=== PATIENT | female | born 1995 | race Caucasian/White ===

== ENCOUNTER 2018-12-31 13:44 | Emergency (ER) | payer MEDICAID, OTHER ==
[~2018-12-31] VITALS: Ht 157.5 cm; Wt 50.0 kg
[2018-12-31 13:54] VITALS: Ht 157.5 cm; Wt 50.0 kg
[2018-12-31] MEDS ORDERED: SOD CHLORIDE 0.9% 1,000 ML IV STA (13:57)
[2018-12-31] MEDS ORDERED: KETOROLAC 30 MG INJ IV STA (13:57)
[2018-12-31] MEDS ORDERED: LORAZEPAM 2 MG INJ IV ONE (14:00)
--- NOTE | 2018-12-31 16:11 | ERD ---
ER Documentation Chief Complaint Chief Complaint abdominal pain also states cant walk feels numbness and tingling HPI This is a 23-year-old female with no past medical history the presents to the emergency department complaining of mild abdominal cramping. She states the abdominal cramping is a result of her dysmenorrhea she started her menstrual cycle today. She denies any menorrhagia or metrorrhagia. She states the abdominal cramping is normal during her menstrual cycle. She took a Motrin which she states she is never taken before. Roughly 5 minutes after taking the first 200 mg she took another 200 mg. After she took the second tablet of Motrin she stated that she started to feel some numbness and tingling in her [place] arms and legs. She started to feel anxious. She denied any palpitations or shortness of breath. She felt like it was difficult for her to ambulate. She denied a headache or changes in vision. ROS All systems reviewed and are negative except as per history of present illness. Medications Home Meds No Active Prescriptions or Reported Meds Allergies Allergies: Coded Allergies: No Known Allergy (Unverified , 12/31/18) PMhx/Soc History of Surgery: No Anesthesia Reaction: No Hx Neurological Disorder: No Hx Respiratory Disorders: No Hx Cardiac Disorders: No Hx Psychiatric Problems: No Hx Miscellaneous Medical Probl: No Hx Alcohol Use: No Hx Substance Use: No Hx Tobacco Use: No Smoking Status: Never smoker Physical Exam Vitals Vital Signs Date Temp Pulse Resp B/P (MAP) Pulse Ox O2 O2 Flow FiO2 Time Delivery Rate 12/31/18 98.6 74 18 124/84 100 13:54 (97) Physical Exam Constitutional:Well-developed. Well-nourished. HEENT:Normocephalic. Atraumatic.Pupils were equal round reactive to light. Moist mucous membranes.No tonsillar exudates. No conjunctival pallor. Neck: No nuchal rigidity. No lymphadenopathy. No posterior cervical spine tenderness or step-offs. Respiratory: Not using accessory muscles of respiration.Lungs were clear to auscultation bilaterally. No rhonchi. No rales. No wheezing. Cardiovascular: Regular rate regular rhythm.No murmurs. No rubs were appreci ated.S1, S2 normal. Distal pulses are palpable 2+ bilaterally. GI: Abdomen was soft. Nontender. Non Distended. No pulsatile abdominal masses or bruits. No rebound. No guarding. Bowel sounds were present and normal. Muscle skeletal: Full range of motion of both the upper and lower extremities bilaterally.Normal muscle tone.No assymetrical calf tenderness or swelling. Skin: No petechia, no purpura. No lesions on the palms or the soles of the feet. No maculopapular rash. NEURO: Patient was alert, awake, orientated x3.No facial droop. Gait not observed as patient was too weak to ambulate. Speech had regular rate and rhythm. No focal neurological deficits. Result Diagram: 12/31/18 1419 12/31/18 1419 Results 24 hrs Laboratory Tests Test 12/31/18 14:19 White Blood Count 15.7 10^3/ul Red Blood Count 4.66 10^6/ul Hemoglobin 14.2 g/dl Hematocrit 41.6 % Mean Corpuscular Volume 89.3 fl Mean Corpuscular Hemoglobin 30.5 pg Mean Corpuscular Hemoglobin Concent 34.1 g/dl Red Cell Distribution Width 11.3 % Platelet Count 280 10^3/UL Mean Platelet Volume 10.3 fl Immature Granulocytes % 0.600 % Neutrophils % 87.6 % Lymphocytes % 6.7 % Monocytes % 4.7 % Eosinophils % 0.1 % Basophils % 0.3 % Nucleated Red Blood Cells % 0.0 /100WBC Immature Granulocytes # 0.100 10^3/ul Neutrophils # 13.7 10^3/ul Lymphocytes # 1.1 10^3/ul Monocytes # 0.7 10^3/ul Eosinophils # 0.0 10^3/ul Basophils # 0.1 10^3/ul Nucleated Red Blood Cells # 0.0 10^3/ul Prothrombin Time 14.0 Sec Prothrombin Time Ratio 1.1 INR International Normalized Ratio 1.07 Activated Partial Thromboplast Time 26.8 Sec Sodium Level 141 mmol/L Potassium Level 3.8 mmol/L Chloride Level 107 mmol/L Carbon Dioxide Level 21 mmol/L Anion Gap 13 Blood Urea Nitrogen 12 mg/dl Creatinine 0.74 mg/dl Est Glomerular Filtrat Rate mL/min > 60 mL/min Glucose Level 114 mg/dl Calcium Level 9.8 mg/dl Total Bilirubin 0.8 mg/dl Direct Bilirubin 0.00 mg/dl Indirect Bilirubin 0.8 mg/dl Aspartate Amino Transf (AST/SGOT) 20 IU/L Alanine Aminotransferase (ALT/SGPT) 12 IU/L Alkaline Phosphatase 75 IU/L Total Protein 8.3 g/dl Albumin 4.9 g/dl Globulin 3.40 g/dl Albumin/Globulin Ratio 1.44 Amylase Level 84 U/L Lipase 39 U/L Serum HCG, Qualitative NEGATIVE Current Medications Medications Dose Sig/Mor Start Time Status Last (Trade) Ordered Route PRN Stop Time Admin Dose Reason Admin Sodium 1,000 ml @ Q1H STAT 12/31/18 DC 12/31/18 Chloride 1,000 mls/hr IV 13:57 12/31/18 14:23 14:56 Lorazepam 0.5 mg ONCE ONCE 12/31/18 DC 12/31/18 (Ativan) IV 14:00 12/31/18 14:28 14:01 Ketorolac 30 mg ONCE STAT 12/31/18 DC Tromethamine IV 13:57 12/31/18 (Toradol) 14:00 Procedures/MDM This is a 23-year-old female that presented to the emergency department with dysmenorrhea and an adverse reaction after taking Motrin. The patient no signs of angioedema. Patient appeared very anxious and was given Ativan intravenously. Afterwards she appeared much more relaxed and had a normal phys ical exam. Her mother was at bedside and was very concerned that the patient could have had a stroke. The patient had no focal neurological deficits again on physical exam. CT scan of the head was found to be normal. There is no severe electrolyte abnormalities. I did feel that the patient will be safely discharged home. The patient was discharged home in fair condition. They were instructed to return to the emergency department at any time if there was any worsening of their condition. The patient stated they would follow up with their PCP in the next 24-48 hours to initiate a suitable medication regimen under the care of their PCP as well as to allow their PCP to monitor any drug reactions. The patient was discharged home with prescriptions after they gave informed consent to the new medication. They were also fully informed by myself on the adverse effects and adverse drug interactions in order to provide adequate safeguards to prevent possible adverse reactions to medications. Obtained a 12-lead EKG tracing to rule out for atypical myocardial ischemia or cardiac arrhythmia. 12 Lead EKG tracing ordered and reviewed by myself showed: Normal sinus rhythm of 67 bpm and no arrhythmia. PA interval normal. QRS duration normal. No ST segment elevation No ST segment depression. No changes consistent with acute ischemia. Departure Diagnosis: Primary Impression: Dysmenorrhea Additional Impression: Paresthesias Condition: WANDA Duran MD Dec 31, 2018 16:11
[2018-12-31 16:49] VITALS: BP 101/58; PULSE 85; RESP 18
== END 2018-12-31 17:09 | disposition home or self-care (01) ==
LOC: E/R 13:44
DX: N94.6 Dysmenorrhea, unspecified (principal); R20.2 Paresthesia of skin
CPT/HCPCS: 70450; 80053; 82150; 83690; 84703; 85025; 85610; 85730; 93005; 96374; J2060; J7030; Z7502; J1885